=== PATIENT | male | born 1985 | race Caucasian/White ===

== ENCOUNTER 2024-09-26 11:55 | Emergency (ER) | payer MEDICAID, SELFPAY ==
[2024-09-26] VITALS (10 sets, daily range): BP systolic 100–121; BP diastolic 54–73; PULSE 51–70; RESP 16–18; TEMP 36.8; O2SAT 96–100; BMI 40.3
--- NOTE | 2024-09-26 12:28 | PC.PHAR ---
Pt is from [facility]. Paperwork shows pt refused all morning medications. (anti psych, anti seizure, and blood pressure)
--- NOTE | 2024-09-26 12:48 | PC.NURSE ---
Urine sample collected from pt and placed in lab.
--- NOTE | 2024-09-26 13:15 | CT_ITS ---
WS: [id number] CT HEAD TECHNIQUE: Noncontrast CT of the head obtained from the skullbase to the vertex. CLINICAL INFORMATION: syncope and collapse COMPARISON: None. DLP: 1083.[address] scans at [facility] use at least one of these dose optimization techniques: automated exposure control; mA and/or kV adjustment per patient size (includes targeted exams where dose is matched to clinical indication); or iterative reconstruction. FINDINGS: No evidence of intracranial hemorrhage or mass effect. Ventricular system and basal cisterns are patent. No extra-axial fluid collections. No evidence of mass or mass effect. Normal jacobo-white differentiation. Paranasal sinuses and mastoid air cells are well aerated. .Normal visualized soft tissues. CT/CT head wo con* [id number] IMPRESSION: 1. No evidence of intracranial hemorrhage or mass effect. 2. No acute intracranial findings.
--- NOTE | 2024-09-26 13:15 | CT_ITS ---
WS: [id number] CT ABDOMEN PELVIS TECHNIQUE: Contrast-enhanced CT of the abdomen and pelvis with coronal and sagittal reformatted images. CLINICAL INFORMATION: abdominal pain COMPARISON: None. DLP: 1207.[address] scans at [facility] use at least one of these dose optimization techniques: automated exposure control; mA and/or kV adjustment per patient size (includes targeted exams where dose is matched to clinical indication); or iterative reconstruction. FINDINGS: Slight bibasilar atelectasis. Subsegmental atelectasis in the lingula. Fatty liver. Normal portal vein and splenic vein. Normal spleen. Small esophageal hiatal hernia. Normal caliber abdominal aorta. Celiac and SMA are patent. Adrenal glands are normal. Normal renal parenchymal enhancement. No hydronep hrosis. Cortical scarring RIGHT kidney. Normal appendix in the RIGHT lower quadrant. Tiny fat-containing umbilical hernia. Screw fixation LEFT hip. Normal sigmoid colon. No evidence of small or large bowel obstruction. Normal appendix. No other acute findings. CT/CT abdomen pelvis w con* [id number] IMPRESSION: 1. No acute findings in the abdomen or pelvis
--- NOTE | 2024-09-26 13:22 | W.ED.ABDPA2 ---
HPI - Abdominal Pain General: Chief Complaint: Abdominal Pain Stated Complaint: Lethargic Time Seen by Provider: 09/26/24 12:03 History of Present Illness: 39-year-old male presents to the ER chief complaint of having a syncopal episode prior to arrival patient Dors that she has had several episodes of nonbloody diarrhea today as well as nausea endorses some left lower abdominal pain denies any prior history of any abdominal surgeries patient has a history of significant mental health issues but reports no other abdominal concerns or history patient reports that he nearly passed out or passed out prior to arrival did not strike his head he had a positive loss of consciousness and had a syncopal event patient reported no chest pain or palpitations preceding the passing out event he presents to the ER for further assessment and management. Patient does endorse being on several blood pressure medications including lisinopril that he takes twice daily he reports this may contribute to his passing out experience Associated Symptoms: Reports diarrhea and nausea; Denies chills, fever(s) and vomiting Related Data Home Medications ?Medication ?Instructions ?Recorded ?Confirmed divalproex 250 mg tablet,extended 250 mg PO BID 09/26/24 09/26/24 release 24 hr famotidine 40 mg tablet 40 mg PO BID 09/26/24 09/26/24 fenofibrate nanocrystallized 145 145 mg PO QAM 09/26/24 09/26/24 mg tablet gabapentin 100 mg capsule 100 mg PO TID 09/26/24 09/26/24 hydroxyzine HCl 50 mg tablet 50 mg PO QID PRN Anxiety 09/26/24 09/26/24 lisinopril 10 mg tablet 10 mg PO QAM 09/26/24 09/26/24 lisinopril 5 mg tablet 5 mg PO QAM 09/26/24 09/26/24 naltrexone 50 mg tablet 50 mg PO QAM 09/26/24 09/26/24 paliperidone 9 mg tablet,extended 9 mg PO QAM 09/26/24 09/26/24 release 24 hr simvastatin 20 mg tablet 20 mg PO QPM 09/26/24 09/26/24 tizanidine 4 mg tablet 4 mg PO QID PRN Spasms 09/26/24 09/26/24 valacyclovir 500 mg tablet 500 mg PO QAM 09/26/24 09/26/24 venlafaxine 225 mg tablet,extended 225 mg PO QAM 09/26/24 09/26/24 release 24 hr Previous Rx's ?Medication ?Instructions ?Recorded loperamide 2 mg capsule (Imodium 2 mg PO Q6H PRN loose stool #20 09/26/24 A-D) caps ondansetron 4 mg disintegrating 4 mg PO Q8H PRN nausea and 09/26/24 tablet vomiting 5 days #14 tabs Allergies Allergy/AdvReac Type Severity Reaction Status Date / Time No Known Allergies Allergy Verified 09/26/24 12:04 Review of Systems General: Reports: 10 or more systems reviewed and unremarkable except in HPI and below Const: Denies: fever(s), chills, fatigue or malaise Eyes: Denies: change in vision or blurry vision Card: Denies: chest pain or palpitations Resp: Denies: dyspnea or productive cough GI: Reports: abdominal pain, nausea and diarrhea; Denies: vomiting : Denies: flank pain Musc: Denies: extremity pain or extremity swelling Skin/Breast: Denies: rash or pruritus Neuro: Reports: dizziness and other (Syncope); Denies: headache(s) Psych: Denies: anxiety or depression [place]/Lymph: Denies: easy bleeding All/Imm: Denies: urticaria, throat swelling or facial swelling Physical Exam Const: COMMON NORMALS: no acute distress, patient oriented x3 and healthy appearing (No focal neurodeficit appreciated GCS is 15 NIH is 0.) HENMT: COMMON NORMALS: normocephalic and atraumatic HEAD & SCALP: normocephalic and atraumatic Eye: COMMON NORMALS: Equal, round and reactive pupils present and EOMs intact bilaterally PUPIL: Yes Equal, round and reactive pupils present Neck/C-Spine: COMMON NORMALS: full ROM, supple and no JVD Lymph: LYMPHATIC: no lymphadenopathy noted Chest: COMMONS NORMALS: normal inspection of the chest and normal palpation of entire chest wall Resp: COMMON NORMALS: normal respiratory effort, No retractions and clear to auscultation bilaterally EFFORT & INSPECTION: Yes able to speak in complete sentences and Yes symmetric chest movement AUSCULTATION: clear to auscultation bilaterally Cardio: COMMON NORMALS: no JVD, regular rate and regular rhythm RATE: regular rate RHYTHM: regular rhythm GI: COMMON NORMALS: Soft to palpation; negative for Normal to inspection, nondistended, normoactive bowel sounds present and negative for non-tender (Moderate tenderness appreciated left lower abdomen no obvious guarding or r) INSPECTION: Yes normal to inspection PALPATION: Yes Soft to palpation : COMMON NORMALS: Yes no CVA tenderness BLADDER/KIDNEY EXAM: Yes no CVA tenderness Back/Pelvis: COMMON NORMALS: no CVA tenderness Extremity: COMMON NORMALS: normal to inspection and full ROM Neuro: COMMON NORMALS: patient oriented x3, CN's II-XII intact bilaterally, moves all extremities and no focal motor deficits Psych: COMMON NORMALS: mental status grossly normal, Normal thought process present, cooperative and normal affect THOUGHT PROCESS: Normal thought process present Skin: COMMON NORMALS: no rashes or lesions noted GENERAL SKIN EXAM: no rashes or lesions noted Course Vital Signs: Vital signs: Vital Signs Temperature 98.2 F 09/26/24 12:01 Pulse Rate 64 09/26/24 15:00 Respiratory Rate 16 09/26/24 13:46 Blood Pressure 101/73 09/26/24 15:00 Pulse Oximetry 99 09/26/24 15:00 Oxygen Delivery Me thod Room Air 09/26/24 15:00 MDM - Abdominal Pain Medical Decision Making Due to patient's symptoms and condition an IV will be established IV fluids provided for duration with lab work and imaging obtained will continue to follow. Patient's lab work and imaging came back reassuring CT imaging the head came back unremarkable his abdominal CT came back unremarkable as well as lab work. Patient stable for discharge home we will providing him on some medications for his associate symptoms of nausea and diarrhea I did advise further follow-up with primary care in 3 to 5 days and was to return in the interim if any of his symptoms persist or worse. Lab Data 09/26/24 12:55 09/26/24 12:55 Labs/Radiology: Radiology Impressions Abdomen/Pelvis CT 09/26/24 13:15 IMPRESSION: 1. No acute findings in the abdomen or pelvis Head CT 09/26/24 13:15 IMPRESSION: 1. No evidence of intracranial hemorrhage or mass effect. 2. No acute intracranial findings. Laboratory Results WBC 5.19 10^3/uL (3.29-11.43) 09/26/24 12:55 RBC 3.81 10^6/uL (3.85-5.65) L 09/26/24 12:55 Hgb 12.20 g/dL (11.27-16.99) 09/26/24 12:55 Hct 37.9 % (37-53) 09/26/24 12:55 MCV 99.5 fl (82-101) 09/26/24 12:55 MCH 32.0 pg (27-33) 09/26/24 12:55 MCHC 32.2 g/dL (30-55) 09/26/24 12:55 RDW 14.0 % (12.1-15.1) 09/26/24 12:55 Plt Count 172 10^3/cmm (157-399) 09/26/24 12:55 MPV 9.5 fL (7.4-10.4) 09/26/24 12:55 Neut % (Auto) 52.5 % 09/26/24 12:55 Lymph % (Auto) 34.9 % 09/26/24 12:55 [place] % (Auto) 8.5 % 09/26/24 12:55 Eos % (Auto) 2.9 % 09/26/24 12:55 Baso % (Auto) 0.6 % 09/26/24 12:55 Neut # (Auto) 2.73 10^3/uL (1.8-7.7) 09/26/24 12:55 Lymph # (Auto) 1.8 10^3/uL (0.8-4.8) 09/26/24 12:55 [place] # (Auto) 0.4 10^3/uL (0.2-0.9) 09/26/24 12:55 Eos # (Auto) 0.2 10^3/uL (0.0-0.8) 09/26/24 12:55 Baso # (Auto) 0.0 10^3/uL (0.0-0.1) 09/26/24 12:55 Nucleated RBC % (auto) 0 % 09/26/24 12:55 Nucleated RBCs # 0.0 /100WBC 09/26/24 12:55 Sodium 139 mmol/L (136-145) 09/26/24 12:55 Potassium 5.2 mmol/L (3.5-5.1) H 09/26/24 12:55 Chloride 102 mmol/L (98-107) 09/26/24 12:55 Carbon Dioxide 31 mmol/L (22-29) H 09/26/24 12:55 Anion Gap 11.2 (5-19) 09/26/24 12:55 BUN 17 mg/dL (6-20) 09/26/24 12:55 Creatinine 0.7 mg/dL (0.7-1.2) 09/26/24 12:55 GFR Calculation 126.2 mL/min (90-130) 09/26/24 12:55 Glucose 82 mg/dL (65-115) 09/26/24 12:55 Calculated Osmolality 289 mOsm/kg (285-295) 09/26/24 12:55 Calcium 9.3 mg/dL (8.5-10.5) 09/26/24 12:55 Total Bilirubin 0.3 mg/dL (0.15-1.2) 09/26/24 12:55 AST 21 U/L (0-40) 09/26/24 12:55 ALT 18 U/L (0-41) 09/26/24 12:55 Alkaline Phosphatase 30 U/L (40-130) L 09/26/24 12:55 C-Reactive Protein 3.0 mg/L (0.0-4.9) 09/26/24 12:55 Total Protein 6.7 g/dL (6.6-8.7) 09/26/24 12:55 Albumin 4.0 g/dL (3.5-5.2) 09/26/24 12:55 Globulin 2.7 g/dL (1.3-4.6) 09/26/24 12:55 Lipase 51 U/L (13-60) 09/26/24 12:55 Urine Color Yellow (Yellow) 09/26/24 12:10 Urine Appearance Clear (CLEAR) 09/26/24 12:10 Urine pH 8.5 (5-7) A 09/26/24 12:10 Ur Specific [place] 1.010 (1.005-1.030) 09/26/24 12:10 Urine Protein Negative (Negative) 09/26/24 12:10 Urine Glucose (UA) Negative (Normal) 09/26/24 12:10 Urine Ketones Negative (Negative) 09/26/24 12:10 Urine Blood Negative (Negative) 09/26/24 12:10 Urine Nitrate Negative (Negative) 09/26/24 12:10 Urine Bilirubin Negative (Negative) 09/26/24 12:10 Urine Urobilinogen 0.2 mg/dL (Negative) 09/26/24 12:10 Ur Leukocyte Esterase Negative (Negative) 09/26/24 12:10 Urine RBC 0-2 /hpf (0-2) 09/26/24 12:10 Urine WBC 0-5 /hpf (0-5) 09/26/24 12:10 Ur Squamous Epith Cells 0-5 /hpf (0-5) 09/26/24 12:10 Amorphous Sediment Not Reportable 09/26/24 12:10 Urine Bacteria None seen /hpf (NONE) 09/26/24 12:10 Hyaline Casts 0-4 /lpf H 09/26/24 12:10 Urine Opiates Screen Negative ng/mL (Negative) 09/26/24 12:10 Ur Barbiturates Screen Negative ng/mL (Negative) 09/26/24 12:10 Ur Phencyclidine Scrn Negative ng/mL (Negative) 09/26/24 12:10 Ur Amphetamines Screen Negative ng/mL (Negative) 09/26/24 12:10 U Benzodiazepines Scrn Negative ng/mL (Negative) 09/26/24 12:10 Urine Cocaine Screen Negative ng/mL (Negative) 09/26/24 12:10 U Marijuana (THC) Screen Positive ng/mL (Negative) H 09/26/24 12:10 All radiology interpretation(s) finalized by discharge Discharge Plan Discharge Patient Disposition: Home Clinical Impression: Nausea, Diarrhea, Syncope, Dehydration Condition: Stable Prescriptions: New ondansetron 4 mg tablet,disintegrating 4 mg PO Q8H PRN (Reason: nausea and vomiting) 5 Days Qty: 14 0RF loperamide [Imodium A-D] 2 mg capsule 2 mg PO Q6H PRN (Reason: loose stool) Qty: 20 0RF No Action tizanidine 4 mg Tablet 4 mg PO QID PRN (Reason: Spasms) naltrexone 50 mg Tablet 50 mg PO QAM famotidine 40 mg Tablet 40 mg PO BID hydroxyzine HCl 50 mg Tablet 50 mg PO QID PRN (Reason: Anxiety) valacyclovir 500 mg Tablet 500 mg PO QAM simvastatin 20 mg Tablet 20 mg PO QPM lisinopril 10 mg Tablet 10 mg PO QAM Rx Instructions: along with 5mg to= 15mg total lisinopril 5 mg Tablet 5 mg PO QAM Rx Instructions: along with 10mg to=15mg total gabapentin 100 mg Capsule 100 mg PO TID divalproex 250 mg Tablet Extended Release 24 Hr 250 mg PO BID fenofibrate nanocrystallized 145 mg Tablet 145 mg PO QAM paliperidone 9 mg Tablet Extended Release 24hr 9 mg PO QAM venlafaxine 225 mg Tablet Extended Release 24hr 225 mg PO QAM Discharge Orders: Discharge ED (Routine); Ordered 09/26/24 Ordered By: Shola Gary Discharge Diet: Advance as tolerated Discharge Activity: Increase activity as tolerated Patient Instructions: Acute Diarrhea (ED), Abdominal Pain (ED), Acute Nausea and Vomiting (ED) Activity Restrictions/Additional Instructions: Take medications as prescribed please increase your p.o. fluids oral fluids please further follow-up primary care in 3 to 5 days and was to return the interim if any of your symptoms persist or worse. Print Language: Belizean Coding Level of Care Code ED Enterprise Engineer for Quyen Mahmood
[2024-09-26] MEDS: iohexol 350 mg/mL 500 mL Btl (per mL) IV (13:34)
[2024-09-26 13:35] LABS: Bilirubin Urine Negative (Negative); Blood Urine Negative (Negative); Glucose Urine UA Negative (Normal); Ketones Urine Negative (Negative); Leukocyte Esterase Urine Negative (Negative); Nitrate Urine Negative (Negative); Protein Urine Negative (Negative); Urine Appearance Clear (CLEAR); Urine Color Yellow (Yellow); Urobilinogen Urine 0.2 mg/dL (Negative); pH Urine 8.5 (5-7)
[2024-09-26 13:40] LABS: Add Urine Microscopic? YES; Bacteria Urine None Seen /hpf; Hyaline Casts Urine 0-4 /lpf; RBC Urine 0-2 /hpf (0-2); Squamous Epithelial Cell Urine 0-5 /hpf (0-5); WBC Urine 0-5 /hpf (0-5)
--- NOTE | 2024-09-26 13:41 | ECG_ITS ---
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 Measurements Intervals [place] Rate: 63 P: 44 OK: 138 QRS: 45 QRSD: 97 T: 34 QT: 392 QTc: 402 Interpretive Statements SINUS RHYTHM No previous ECG available for comparison Electronically Signed On 09-26-2024 17:40:58 CDT by Lester Martin M.D. [email or web address]
[2024-09-26 13:42] LABS: Amphetamines Screen Urine Negative (Negative); Barbiturates Screen Urine Negative (Negative); Benzodiazepines Screen Urine Negative (Negative); Cocaine Screen Urine Negative (Negative); Opiate Screen Urine Negative (Negative); PCP Screen Urine Negative (Negative); THC Screen Urine Positive (Negative)
[2024-09-26] MEDS: ondansetron 2 mg/ML SDV 2 mL 4 MG IVP (13:43)
[2024-09-26] MEDS: sodium chloride 0.9% 1,000 ML 999 ML IV (13:43)
[2024-09-26] MEDS: fentaNYL 50 mcg/mL INJ 2mL 25 MCG IVP (13:44)
[2024-09-26 13:58] LABS: Basophils % 0.6 %; Eosinophils # 0.2 10^3/uL (0.0-0.8); Eosinophils % 2.9 %; Hematocrit 37.9 % (37-53); Lymphocytes # 1.8 10^3/uL (0.8-4.8); Lymphocytes % 34.9 %; Mean Corpuscular HGB Conc 32.2 g/dL (30-55); Mean Corpuscular Volume 99.5 fl (82-101); Mean Platelet Volume 9.5 fL (7.4-10.4); Monocytes # 0.4 10^3/uL (0.2-0.9); Monocytes % 8.5 %; Neutrophils # 2.73 10^3/uL (1.8-7.7); Neutrophils % 52.5 %; Nucleated Red Blood Cells % 0 %; Platelet Count 172 10^3/cmm (157-399); Red Blood Count 3.81 10^6/uL (3.85-5.65); White Blood Count 5.19 10^3/uL (3.29-11.43)
[2024-09-26 14:01] LABS: Add Urine Culture? No
[2024-09-26 14:17] LABS: Alanine Aminotransferase 18 U/L (0-41); Alkaline Phosphatase 30 U/L (40-130); Anion Gap 11.2 (5-19); Aspartate Amino Transferase 21 U/L (0-40); Blood Urea Nitrogen 17 mg/dL (6-20); Calcium 9.3 mg/dL (8.5-10.5); Carbon Dioxide 31 mmol/L (22-29); Chloride 102 mmol/L (98-107); Creatinine Clr Calc Pharmacy 169.2698; Globulin 2.7 g/dL (1.3-4.6); Glomerular Filtration Rate 126.2 mL/min (90-130); Glucose 82 mg/dL (65-115); Lipase 51 U/L (13-60); Osmolality Calculated 289 mOsm/kg (285-295); Potassium 5.2 mmol/L (3.5-5.1); Sodium 139 mmol/L (136-145); Total Bilirubin 0.3 mg/dL (0.15-1.2); Total Protein 6.7 g/dL (6.6-8.7)
--- NOTE | 2024-09-26 15:43 | PC.NURSE ---
contacted [facility] in regards to pt dc. TL voiced sending someone to pick pt up now.
== END 2024-09-26 16:28 | disposition home or self-care (01) ==
PROVIDERS: Emergency Provider Emergency Medicine
DX: R11.0 Nausea (principal); R19.7 Diarrhea, unspecified; R55 Syncope and collapse; E86.0 Dehydration
CPT/HCPCS: 70450; 74177; 80053; 80306; 81001; 83690; 85025; 86140; 93005; 96361; 96374; 96375; 99285; J2405; J3010; J7030